=== PATIENT | male | born 1985 | race Caucasian/White ===

== ENCOUNTER 2022-05-21 12:33 | Emergency (ER) | payer MEDICAID ==
[~2022-05-21] VITALS: Ht 172.7 cm; Wt 68.0 kg
[2022-05-21 12:33] VITALS: BP_SYST 111
--- NOTE | 2022-05-21 12:33 | NUR ---
BROUGHT IN BY [facility], PLACED IN BED IN HALLWAY AND WILL ASSUME CARE. PT STATES HE WORKS A [employer] FOR [employer] AND WHILE WORKING HE STARTED HAVING A PANIC ATTACK/ANXIETY. STARTED ABOUT 1 HR AGO. LAST ANXIETY ATTACK WAS 2 YEARS AGO AND HE USED TO TAKE LORAZEPAM.
--- NOTE | 2022-05-21 13:40 | NUR ---
DR PRETTY AT BEDSIDE FOR EVALUATION
[2022-05-21] MEDS ORDERED: chlordiazePOXIDE HCL 25 MG CAPSULE PO ONE (13:45)
[2022-05-21 14:24] LABS: BASOPHILS # (AUTO) 0.1 K/uL (0.0-0.2); BASOPHILS % (AUTO) 0.6 % (0.0-2.0); EOSINOPHILS % (AUTO) 0.4 % (0.0-4.0); HEMATOCRIT 42.7 % (36-54); HEMOGLOBIN 14.9 g/dL (14.0-18.0); LYMPHOCYTES # (AUTO) 1.3 K/uL (1.0-5.5); LYMPHOCYTES % (AUTO) 12.4 % (20.5-51.5); MEAN CORPUSCULAR HEMOGLOBIN 31 pg (27-31); MEAN CORPUSCULAR HGB CONC 35 % (32-36); MEAN CORPUSCULAR VOLUME 89 fL (79.0-98.0); MONOCYTES # (AUTO) 0.8 K/uL (0.0-1.0); MONOCYTES % (AUTO) 7.4 % (1.7-9.3); NEUTROPHILS # (AUTO) 8.1 K/uL (1.8-7.7); NEUTROPHILS % (AUTO) 79.2 % (40.0-70.0); PLATELET COUNT (AUTO) 207 K/uL (130-430); RED BLOOD CELL COUNT(AUTO) 4.82 MIL/uL (4.2-6.2); WHITE BLOOD COUNT (AUTO) 10.2 K/uL (4.8-10.8)
[2022-05-21 14:42] LABS: ANION GAP 9 (5-15); CALCIUM 9.2 mg/dL (8.4-11.0); CHLORIDE 99 mmol/L (98-107); CREATININE 1.05 mg/dL (0.55-1.30); GLUCOSE 82 mg/dL (70-99); POTASSIUM 4.1 mmol/L (3.5-5.1); UREA NITROGEN, BLOOD 17 mg/dL (8-21)
[2022-05-21 14:43] LABS: GFR AFRICAN AMERICAN 103 mL/min (>90)
--- NOTE | 2022-05-21 14:45 | NUR ---
DR PRETTY SPEAKING WITH PT RE:TEST RESULTS
[2022-05-21] MEDS ORDERED: LIB25 PO (14:50)
[2022-05-21 14:55] LABS: ALANINE AMINOTRANSFERASE 21 U/L (12-78); ALBUMIN 3.8 g/dL (3.4-4.8); ASPARTATE AMINOTRANSFERASE 18 U/L (10-37); TOTAL BILIRUBIN 0.8 mg/dL (0.0-1.0)
--- NOTE | 2022-05-21 15:03 | NUR ---
Patient given written and verbal discharge instructions and verbalizes understanding. ER MD discussed with patient the results and treatment provided. Patient in stable condition. ID arm band removed. Rx of LIBRIUM given. Patient educated on pain management and to follow up with PMD. Pain Scale 0/10. Opportunity for questions provided and answered. Medication side effect fact sheet provided.
== END 2022-05-21 15:03 | disposition home or self-care (01) ==
LOC: SED 12:33
DX: F10.239 Alcohol dependence with withdrawal, unspecified (principal); F14.23 Cocaine dependence with withdrawal; F10.288 Alcohol dependence with other alcohol-induced disorder; R00.2 Palpitations; R42 Dizziness and giddiness; Z79.899 Other long term (current) drug therapy; Y90.6 Blood alcohol level of 120-199 mg/100 ml
CPT/HCPCS: 36415; 80053; 84484; 85025; 93005; 99284